=== PATIENT | female | born 1980 | race Hispanic/Latino ===

== ENCOUNTER 2016-08-14 17:53 | Emergency (ER) | payer SELFPAY ==
[2016-08-14 18:04] VITALS: BP 121/83
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
[2016-08-14] MEDS ORDERED: Acetaminophen/HYDROcodone 325-10 MG Tab PO ONE (18:52)
[2016-08-14] MEDS ORDERED: Ibuprofen 600 MG Tab PO ONE (18:52)
== END 2016-08-14 19:10 | disposition home or self-care (01) ==
LOC: DL.ED 17:53
DX: S00.83XA Contusion of other part of head, initial encounter (principal); Z98.51 Tubal ligation status; Z88.5 Allergy status to narcotic agent; V49.3XXA Car occupant (driver) (passenger) injured in unspecified nontraffic accident, initial encounter
CPT/HCPCS: 70450; 70486; 99284; A9270; 99283